=== PATIENT | female | born 1960 | race Hispanic/Latino ===

== ENCOUNTER 2024-05-09 22:18 | Emergency (ER) | payer BC ==
[~2024-05-09] VITALS: Ht 162.6 cm; Wt 98.9 kg
[~2024-05-09 22:18] MED LIST: FAMO-136 PO; OMEP-420 PO
--- NOTE | 2024-05-09 22:43 | ERN ---
ED Note History of Present Illness Stated Complaint: C/O BURNING TO THROAT, SPITTING UP BLOOD Chief Complaint: Sore Throat Time Seen by MD: 22:20 Dictation: This is a 63-year-old female who presented to the emergency room accompanied by family members and her son with complaints of severe burning of the throat and coughing up some streaks of blood. She stated that she went to bed around 830 and fell asleep. She woke up suddenly at 10:00 p.m. having severe burning of the throat with subsequent episodes of coughing with scant amounts of streaks of blood in the clear sputum. No fever chills or rigors no shortness of breath no hematemesis or melena She does admit to acid reflux symptoms off and on. She denied any excessive use of [id number] nonsteroidals. No history of any alcohol intake last night. She also reported pain in the interscapular area thoracic spine with burning on the skin. Temperature 97.2 pulse 89 respirations 20 blood pressure 186/99 with a pulse oximetry of 97% on room air Her chronic medical problems include diabetes mellitus, hypertension, hypercholesterolemia and hypothyroidism.(diagnosed when she was 23) She was also diagnosed with obstructive sleep apnea and 5 years ago there was a recall on her CPAP machine and since then she has never gone back for a follow-up or re-evaluation. Allergies: Coded Allergies: No Known Allergies (Unverified Allergy, Unknown, 07/25/23) Home Meds Active Scripts Ketorolac Tromethamine (Toradol) 10 Mg Tab, 10 MG PO QID for pain for 5 Days, #20 TAB 0 Refills Prov:KARLO MARY MD 05/09/24 Omeprazole (Omeprazole) 40 Mg Capsule., 1 CAP PO DAILY for 30 Days, #30 CAP 0 Refills Prov:KARLO MARY MD 05/09/24 Famotidine (Pepcid) 20 Mg Tablet, 20 MG PO Q12H, #28 TAB Prov:SALENA BOWSER MD 07/25/23 Omeprazole (Omeprazole) 20 Mg Tab.rap., 20 MG PO DAILY, #14 TAB Prov:SALENA BOWSER MD 07/25/23 Past Medical History Past Medical History: Diabetes-Type II, High Cholesterol, Hypertension, Hypothyroid, Other Additional Past Medical Hx: Obstructive sleep apnea syndrome Surgical History: Hysterectomy Family History: Negative Social History: ETOH (Social occasional), Negative History: Not Applicable Aborts: 8 RN Note Reviewed/Agreed w/PFSH: Yes Review of System Dictation Constitutional: Negative for fever,chills, and weight loss Eyes: Negative for injury, pain,redness, and discharge ENT: Negative for injury,pain or swelling as described in the history of present illness Cardiovascular: Negative for chest pain, palpitations, and edema Respiratory: Negative for shortness of breath, cough, and wheezing, Abdomen/GI: Negative for abdominal pain, nausea, vomiting, diarrhea, and constipation Back: Negative for injury and pain : Negative for injury, bleeding and discharge MS/Extremity: Negative for injury and deformity Skin: Negative for rash, and discoloration Neuro: Negative for headache, weakness, numbness, tingling, and seizure Psych: Negative for suicide ideation, homicidal ideation, and hallucinations Initial Vital Sign VS Vital Signs Date Time Temp Pulse Resp B/P (MAP) Pulse Ox O2 Delivery O2 Flow Rate FiO2 05/09/24 22:20 97.2 89 20 186/99 98 Room Air Physical Exam Dictation General: awake, alert, NAD very obese Head/Face: Normocephalic, atraumatic Eyes: PERRL, EOMI, vision at baseline ENT: oral cavity clear, TMs clear, no signs of infection Neck: Trachea midline, supple, no nuchal rigidity Cardiovascular: RRR, normal S1/S2, No MRGs, no JVD Respiratory: CTAB, no respiratory distress, No rales or wheezes Abdomen: Soft, non-tender, non-distended, normal bowel sounds, no guarding or rebound. Skin: Warm, dry, normal turgor, no rash MS/Extremity: Pulses equal, no cyanosis, neurovascular intact, FROM Neuro: COAx4, GCS 15, strength 5/5, CN 2-12 intact, normal cerebellar exam, normal gait, Psych: Normal behavior, mood, and affect normal Extremities-trace edema without any palpable cords, Homans sign is negative Results (Laboratory/Radiology) Laboratory/Radiology Laboratory Tests Test 05/09/24 22:23 Influenza Type A Antigen Negative For Type A Influenza Type B Antigen Negative For Type B SARS-CoV-2, RNA, NAAT NEGATIVE SARS CoV-2 Group A Streptococcus Rapid negative (NEGATIVE) Labs Reviewed?: Yes ED Course ED Course Orders Procedure Category Date Status Time Covid Rna Naat LAB 05/09/24 Complete 22:23 Influenza Type A & B, LAB 05/09/24 Complete Rapid 22:23 Rapid (Group A Strep) LAB 05/09/24 Complete 22:23 Chest 1vw RAD 05/09/24 Resulted 22:29 Pantoprazole 40mg Tab PHA 05/09/24 Complete (Protonix 40mg Tab 23:30 Methylprednisolone PHA 05/09/24 Complete Succ 125mg (Solu-Medr 23:30 Ketorolac PHA 05/09/24 Complete Tromethamine 30mg/Ml 23:30 Ketorolac PHA 05/10/24 Complete Tromethamine 30mg/Ml 00:00 Current Medications Medications (Trade) Dose Ordered Sig/Sondra Route PRN Reason Start Time Stop Time Status Last Admin Dose Admin Ketorolac Tromethamine (toRADol) 30 mg ONCE ONCE IM 05/09/24 23:30 05/09/24 23:23 DC Ketorolac Tromethamine (toRADol) 30 mg ONCE ONCE IM 05/10/24 00:00 05/10/24 00:01 DC 05/09/24 23:47 Methylprednisolone Sodium Succinate (Solu-medROL 125MG) 80 mg ONCE ONCE IVP 05/09/24 23:30 05/09/24 23:31 DC 05/09/24 23:46 Pantoprazole Sodium (PROTonix 40MG TAB) 40 mg ONCE ONCE PO 05/09/24 23:30 05/09/24 23:31 DC 05/09/24 23:46 Vital Signs Date Time Temp Pulse Resp B/P (MAP) Pulse Ox O2 Delivery O2 Flow Rate FiO2 05/09/24 22:20 97.2 89 20 186/99 98 Room Air We will perform diagnostic labs, imaging and administer medications according to the patient's complaint. Once the results are available, will review and personally interpreted the labs to rule out any acute life-threatening emergency the trach require immediate intervention and treatment. I will then re-evaluate the patient after treatment and diagnostic exams have return to determine whether the patient requires any further testing, can safely be discharged home or need further admission to hospital for additional treatment and evaluation. Chest x-ray was essentially negative for any acute infiltrate or aspiration pneumonia. Viral serology for influenza COVID as well as strep throat are all negative I had a long discussion with the patient and family members at bedside regarding my thoughts that perhaps she had an episode of a acid reflux with burning in her throat and microaspiration causing her to have a cough. Untreated sleep apnea is a major concern for comorbidities and worsening complications. A trial of a PPI and I also recommended that she should be re-evaluated with a sleep study and be treated. Also counseled her on weight loss diet and exercise and she indicated to me that she was on Ozempic at 1 point and she became very sick Medical Decision Making MDM MDM: Differential diagnosis: Rationale: Tests considered and ordered secondary to shared decision making include: Previous outside records reviewed: Old ER visits. Risk of complication and/or morbidity or mortality of patient management: None Medications-Per medication reconciliation Need for hospitalization: Patient does not meet criteria for hospitalization. Need for emergency major/minor surgery: No There are no social concerns with this patient. Prescription drug management Prescriptions will include symptomatic care Patient's prior external medical records from other ER visits were reviewed by me as indicated. Prior testing and results from previous visits were reviewed. Prior tests were taken into account with medical decision making and resource utilization, independent historian/historians were used to obtain complete medical history. I independently interpreted the test that were performed, results were reviewed by me and considered findings on radiology if ordered. Medical management and examination interpretation discussions were had by me with other qualified healthcare professionals as indicated for the patient's care. Problem List Problem List: (1) Acid reflux disease (2) Obstructive sleep apnea (adult) (pediatric) (3) Hypothyroidism (4) Pharyngitis DX & DISP Disposition: Discharge Departure Impression: Primary Impression: Acid reflux disease Additional Impressions: Pharyngitis, Hypothyroidism, Obstructive sleep apnea (adult) (pediatric) Condition: Stable Scripts Ketorolac Tromethamine (Toradol) 10 Mg Tab 10 MG PO QID for pain for 5 Days, #20 TAB 0 Refills Prov: KARLO MARY MD 05/09/24 Omeprazole (Omeprazole) 40 Mg Capsule. 1 CAP PO DAILY for 30 Days, #30 CAP 0 Refills Prov: KARLO MARY MD 05/09/24 Additional Instructions: Patient and the caregiver have been informed of all the diagnostic tests and the imaging conducted during the today's visit to the emergency room and has verbalized understanding of the results I have personally reviewed and interpreted all diagnostic exams performed here in the ER today as well as the vital signs documented by the nursing staff. The patient is now being discharged to home and should follow up with the primary care physician or the specialist as directed by the ER staff. Follow-up with primary care provider in 1 to 2 days. Take medications as directed here in the emergency room. Okay to continue home medications unless otherwise discussed during your visit in the emergency room today. Return to your nearest emergency room if symptoms worsen or if there is no improvement. Call 911 if you need immediate assistance. Take Tylenol or Motrin [id number] as needed and if no contraindications are present. Increase oral hydration. A wound culture or urine culture was ordered here in the emergency room department please follow-up with primary care provider and advise them to get repeat ports from our facility. If you had any Yhair wrap/splints that were applied here, please do not remove them until you see your primary care or specialty. Referrals: SELF,REFERRAL (PCP) KARLO MARY MD May 09, 2024 22:43
[2024-05-09 22:49] LABS: RAPID GROUP A STREP negative (NEGATIVE)
[2024-05-09 22:55] LABS: SARS-CoV-2, RNA, NAAT NEGATIVE SARS CoV-2 (NEGATIVE)
[2024-05-09 23:03] LABS: INFLUENZA TYPE A Negative For Type A (NEGATIVE); INFLUENZA TYPE B Negative For Type B (NEGATIVE)
[2024-05-09] MEDS ORDERED: OMEP40CA21 PO (23:23)
[2024-05-09] MEDS ORDERED: KETO10 PO (23:23)
[2024-05-09] MEDS ORDERED: ketOROlac 30MG VIAL (30MG/ML) IM ONE (23:30)
--- NOTE | 2024-05-09 23:42 | HMCIMG ---
CHEST 1VW HISTORY: Hemoptysis COMPARISON: 07/25/2023 FINDINGS: A frontal projection of the chest was obtained. No acute pulmonary infiltrates is seen. The heart is borderline enlarged. Degenerative changes are seen. Prominent interstitial markings are seen. No evidence of aortic calcification is seen. IMPRESSION: 1. No acute pulmonary infiltrate is seen. Prominent interstitial markings.
[2024-05-09] MEDS: Solu-medROL 125MG VIAL IVP ONE (23:46)
[2024-05-09] MEDS: PANTOPrazole 40 MG TAB DR PO ONE (23:46)
[2024-05-09] MEDS: ketOROlac 30MG VIAL (30MG/ML) IM ONE (23:47)
[2024-05-10 00:15] VITALS: BP 122/88; PULSE 66; RESP 20; TEMP 98.7; O2SAT 100
== END 2024-05-10 00:18 | disposition home or self-care (01) ==
LOC: EDH 22:18
DX: K21.9 Gastro-esophageal reflux disease without esophagitis (principal); J02.9 Acute pharyngitis, unspecified; E03.9 Hypothyroidism, unspecified; G47.33 Obstructive sleep apnea (adult) (pediatric); E11.9 Type 2 diabetes mellitus without complications; E78.00 Pure hypercholesterolemia, unspecified; I10 Essential (primary) hypertension; Z20.822 Contact with and (suspected) exposure to COVID-19; Z79.899 Other long term (current) drug therapy; Z90.710 Acquired absence of both cervix and uterus
CPT/HCPCS: 99284; 96374; 71045; 87635; 87880; 87804 ×2; 96372; J2919; J1885

== ENCOUNTER 2024-07-11 13:15 | Emergency (ER) | payer BC ==
[~2024-07-11] VITALS: Ht 162.6 cm; Wt 90.7 kg
[~2024-07-11 13:15] MED LIST changes: +KETO10 PO; +OMEP40CA21 PO
--- NOTE | 2024-07-11 14:22 | HMCIMG ---
US VENOUS DOPPLER UNILATERAL REASON: RIGHT CALF PAIN COMPARISON: None Technique: Right venous doppler ultrasound was performed with spectral analysis and color flow imaging technique. FINDINGS: There is a normal appearance of the common femoral, deep femoral, the profunda femoris and popliteal veins. Proximal calf veins appear normal as well. There is normal response to compression and augmentation. There is no evidence of deep venous thrombosis. IMPRESSION: Normal right lower extremity venous Doppler ultrasound.
--- NOTE | 2024-07-11 14:54 | ERN ---
General Chief Complaint: Lower Extremity Pain/Injury Stated Complaint: RIGHT CALF PAIN Time Seen by MD: 13:16 Time Seen by Midlevel: 13:16 Source: patient History of Present Illness Initial Comments Patient is a 63-year-old female presenting to the emergency department with persistent right lower extremity pain that has been ongoing for the last two weeks. She does report recent travel to [place] which is a approximately 3- [address] Denies any trauma to her right lower extremity. Denies any other symptoms. The pain has been increasing in intensity and decided to report to the ER because she was concerned that she may have a blood clot. Denies any history of atrial fibrillation. Denies being on any blood thinners. Allergies: Coded Allergies: No Known Allergies (Unverified Allergy, Unknown, 07/25/23) Home Meds Active Scripts Ketorolac Tromethamine (Toradol) 10 Mg Tab, 10 MG PO QID for pain for 5 Days, #20 TAB 0 Refills Prov:KARLO MARY MD 05/09/24 Omeprazole (Omeprazole) 40 Mg Capsule.dr, 1 CAP PO DAILY for 30 Days, #30 CAP 0 Refills Prov:KARLO MARY MD 05/09/24 Famotidine (Pepcid) 20 Mg Tablet, 20 MG PO Q12H, #28 TAB Prov:SALENA BOWSER MD 07/25/23 Omeprazole (Omeprazole) 20 Mg Tab.rap.dr, 20 MG PO DAILY, #14 TAB Prov:SALENA BOWSER MD 07/25/23 Past Medical History Past Medical History: Diabetes-Type II, High Cholesterol, Hypertension, Hypothyroid, Other Medical History Other: Obstructive sleep apnea syndrome Past Surgical History: Hysterectomy Family History Family History: Negative Social History Social History: ETOH, Negative Female( History) History: Not Applicable Aborts: 8 ROS Dictation CONSTITUTIONAL: Negative except for HPI HEAD/FACE: Negative except for HPI EENT: Negative except for HPI RESPIRATORY: Negative except for HPI GASTROINTESTINAL/ABDOMINAL: Negative except for HPI GENITOURINARY: Negative except for HPI MUSCULOSKELETAL: Negative except for HPI INTEGUMENTARY: Negative except for HPI NEUROLOGICAL/PSYCH: Negative except for HPI HEMATOLOGIC/LYMPHATIC: Negative except for HPI All Systems Negative, Except as noted above. 13 point review of systems assessed and all negative except for above. Physical Exam Physical Exam Dictation Vital Signs reviewed General Appearance: Alert, oriented x 3, no acute distress, well developed, nourished. Head and Face: non-traumatic. Eyes: PERRL, pink conjunctivas, eyelid no trauma, anterior chamber with arcus senilis. Ears: Pinnas intact and no signs of trauma or erythema ear canals clear and no discharge TM no erythema Nose: No discharge, no bleeding. Oropharynx: Mouth normal, tongue pink, pharynx clear,no erythema, tonsils no exudates, no abscesses noted, mucous membrane moist Neck: Supple, non-tender, no thyromegaly, no masses, no JVD, no bruits Breast:Deferred Chest:No tenderness, no crepitus, no paradoxical movement, no retractions Lungs:Clear, well-ventilated, symmetric, no rales, no wheezing, no rhonchi, no stridor, good breath sounds bilaterally Heart: Regular rate, regular rhythm, no murmur, no gallops Vascular: no peripheral edema, Abdomen: Soft, positive bowel sounds, nondistended, no guarding, nontender, no rebound, no masses no hepatomegaly, no splenomegaly, no Bill's sign, no hernias. Rectal: Deferred Genital: Deferred Neurological: Normal speech, motor function intact, sensory function intact Musculoskeletal: Neck nontender, full range of motion, back nontender, full range of motion, Extremities: nontender, full range of motion Skin: Color pink, dry, no turgor, no rash, no lacerations, no abrasions, no contusions. Lymphatic: Deferred MDM MDM: Patient is a 63-year-old female presenting to the emergency department with persistent right lower extremity pain that has been ongoing for the last two weeks. She does report recent travel to [place] which is a approximately 3- [address] Denies any trauma to her right lower extremity. Denies any other symptoms. The pain has been increasing in intensity and decided to report to the ER because she was concerned that she may have a blood clot. Denies any history of atrial fibrillation. Denies being on any blood thinners. On physical examination the patient has mild pain to palpation to her right calf. Pulses are intact. Sensation is intact. Right lower extremity is neurovascularly intact. A Doppler ultrasound was performed to the right lower extremity which does not reveal evidence of a deep vein thrombosis. The patient will need to follow up with her primary care doctor for further evaluation. Symptoms are most likely related to a muscle strain versus varicose vein. Differential diagnosis: Varicose vein, DVT, muscle strain There are no social concerns with this patient. Prescription drug management Prescriptions will include: None Medical management and examination interpretation discussions were had by me with other qualified healthcare professionals as indicated for the patient's care. ED Course Orders Procedure Category Date Status Time Us Venous Doppler US 07/11/24 Resulted Unilateral 13:43 Vital Signs Date Time Temp Pulse Resp B/P (MAP) Pulse Ox O2 Delivery O2 Flow Rate FiO2 07/11/24 13:41 98.1 68 20 125/68 99 Room Air* 0 21 07/11/24 13:30 98.1 68 20 125/[address] [address] IMAGING REPORT Signed PATIENT: SURENDRA CHÁVEZ MR#: [id number] : 1960 SEX: F AGE: 63 LOCATION: [facility] ORDER 43 STATUS: REG ER REPORT#: [id number] SERVICE [id number] REASON: RIGHT CALF PAIN ORDERING PHYSICIAN: LOLLY SALEH PROCEDURE: VENOUS UNI - US VENOUS DOPPLER UNILATERAL US VENOUS DOPPLER UNILATERAL REASON: RIGHT CALF PAIN COMPARISON: None Technique: Right venous doppler ultrasound was performed with spectral analysis and color flow imaging technique. FINDINGS: There is a normal appearance of the common femoral, deep femoral, the profunda femoris and popliteal veins. Proximal calf veins appear normal as well. There is normal response to compression and augmentation. There is no evidence of deep venous thrombosis. IMPRESSION: Normal right lower extremity venous Doppler ultrasound. DICTATED BY: PILO ARROYO MD DATE: 07/11/241418 ELECTRONICALLY SIGNED BY: PILO ARROYO MD DATE: 07/11/24 142 DX & DISP Disposition: Discharge Departure Impression: Primary Impression: Right calf pain Condition: Stable Additional Instructions: Your ultrasound does not show any evidence of a blood clot. You will need to follow up with your primary care doctor for further evaluation. Referrals: SELF,REFERRAL (PCP) Time of Disposition: 14:53 I have reviewed the case, and I agree with, Diagnosis and Plan I performed the substantive portion of the visit. I have reviewed and personally made and approve the management plan that is documented in the note by myself or the RICARDO. I acknowledge for responsibility for the patient's management plan. LOLLY SALEH Jul 11, 2024 14:54
[2024-07-11 14:56] VITALS: BP 131/69; PULSE 65; RESP 20; TEMP 98.1; O2SAT 99
== END 2024-07-11 15:05 | disposition home or self-care (01) ==
LOC: EDH 13:15
DX: M79.661 Pain in right lower leg (principal); E03.9 Hypothyroidism, unspecified; E11.9 Type 2 diabetes mellitus without complications; E78.00 Pure hypercholesterolemia, unspecified; I10 Essential (primary) hypertension; Z79.899 Other long term (current) drug therapy; Z90.710 Acquired absence of both cervix and uterus
CPT/HCPCS: 93971; 99284